=== PATIENT | female | born 1940 | race Caucasian/White ===

== ENCOUNTER 2017-03-24 14:09 | Emergency (ER) | payer MEDICARE ==
[~2017-03-24] VITALS: Ht 160 cm; Wt 51.3 kg
[2017-03-24 14:14] VITALS: BP 176/103
== END 2017-03-24 15:20 | disposition home or self-care (01) ==
LOC: ED 15:00
DX: T63.441A Toxic effect of venom of bees, accidental (unintentional), initial encounter (principal); Y92.89 Other specified places as the place of occurrence of the external cause
CPT/HCPCS: 99281